=== PATIENT | female | born 1955 | race Caucasian/White ===

== ENCOUNTER 2018-09-02 00:39 | Emergency (ER) | payer MEDICARE ==
[2018-09-02] MEDS ORDERED: Bacitracin Oint 1 GM U/D Packet TOP ONE (01:11)
--- NOTE | 2018-09-02 01:15 | EDM.PDOC ---
ED HPI GENERAL MEDICAL PROBLEM - General Chief Complaint: Upper Extremity Injury/Pain Stated Complaint: FELL, HURT LEFT SIDE OF FACE AND RIGHT WRIST Time Seen by Provider: 09/02/18 01:11 Source of Information: Reports: Patient History Limitations: Reports: No Limitations - History of Present Illness INITIAL COMMENTS - FREE TEXT/NARRATIVE: pt was going down the stairs of the deck and she lost her balnce. She injured her rt wrist and she now has swelling. She has a abrasion on the rt knee but she has good range of motion. She has marked bruising of the left forehead and around the left orbit. Her vision is good. Onset: Today, Other (pt fell this pm) Duration: Hour(s): Location: Reports: Head, Upper Extremity, Right Associated Symptoms: Reports: No Other Symptoms Right Wrist Pain Score (Numeric/FACES): 8 - Related Data Allergies Allergy/AdvReac Type Severity Reaction Status Date / Time No Known Allergies Allergy Verified 09/02/18 01:04 Home Meds: Home Meds Levothyroxine Sodium [Synthroid] 100 mcg PO DAILY 09/02/18 [History] Lisinopril 5 mg PO DAILY 09/02/18 [History] hydroCHLOROthiazide [Hydrochlorothiazide] 12.5 mg PO DAILY 09/02/18 [History] Social & Family History - Tobacco Use Smoking Status *Q: Never Smoker - Caffeine Use Caffeine Use: Reports: Coffee - Alcohol Use Days Per Week of Alcohol Use: 3 Number of Drinks Per Day: 1 Total Drinks Per Week: 3 - Recreational Drug Use Recreational Drug Use: No Review of Systems - Review of Systems Review Of Systems: See Below Constitutional: Reports: No Symptoms Eyes: Reports: No Symptoms, Other (pt has swelling around the orbit and on the left forehad area. ) Ears: Reports: No Symptoms Nose: Reports: No Symptoms Mouth/Throat: Reports: No Symptoms Respiratory: Reports: No Symptoms Cardiovascular: Reports: No Symptoms GI/Abdominal: Reports: No Symptoms ED EXAM, GENERAL - Physical Exam Exam: See Below Free Text/Narrative:: pt arrived after falling on the steps of the deck. Exam Limited By: No Limitations General Appearance: Alert, Severe Distress, Other (pt was not knocked out. She is alert and answering questions appropiately. Pupils are equal and reactive. She has alot of sig bruising on the left fiorehead with hematoma formation) Ears: Normal TMs Nose: Normal Inspection Throat/Mouth: Normal Inspection Head: Atraumatic Neck: Normal Inspection Respiratory/Chest: No Respiratory Distress Cardiovascular: Regular Rate, Rhythm GI/Abdominal: Soft, Non-Tender (Female) Exam: Deferred Rectal (Female) Exam: Deferred Back Exam: Normal Inspection Extremities: Other ( rt wrist is very tender and swollen. She has a abrasion on the rt knee but she has good motion on the knee. ) Neurological: Alert, Oriented, Normal Cognition Psychiatric: Normal Affect Course - Vital Signs Last Recorded V/S: Last Vital Signs Temp 36.3 C 09/02/18 01:16 Pulse 82 09/02/18 01:16 Resp 20 09/02/18 01:16 BP 145/87 H 09/02/18 01:16 Pulse Ox 95 09/02/18 01:16 - Orders/Labs/Meds Meds: Medications Discontinued Medications Generic Name Dose Route Start Last Admin Trade Name Freq PRN Reason Stop Dose Admin Bacitracin 1 dose 09/02/18 01:11 09/02/18 01:42 Bacitracin Oint 1 Gm TOP 09/02/18 01:12 1 dose ONETIME ONE Administration - Re-Assessments/Exams Free Text/Narrative Re-Assessment/Exam: 09/02/18 02:05 xray of the rt wrist did not reveal any fractures. A cock up splint was applied to wear for the next few days. Her facial cat scan is neg for fractures. She was warned that she had a good sized hematoma on the left forehead and this would cause bruising of the faciasl area. Departure - Departure Time of Disposition: 02:07 Disposition: Home, Self-Care 01 Condition: Fair Clinical Impression: Contusion of face, Sprain of wrist, right - Discharge Information Referrals: PCP,None [Primary Care Provider] - Forms: ED Department Discharge Care Plan Goals: cool pack to the wrist and left forehead, elevate the wrist. Use the splint for comfortfor the next 4-5 days. motrin 600mg tid as needed for pain, norco 5/325 q6h prn fo more severe pain # 8
--- NOTE | 2018-09-02 01:50 | CRLCR ---
INDICATION: Fall. COMPARISON: None. FINDINGS/IMPRESSION: Right wrist, 3 views. No fracture, dislocation, or other acute abnormality identified in the right wrist. Scattered mild degenerative changes are noted, greatest at the 1st CMC joint. Dictated by Reggie Don MD @ 09/02/2018 1:48:20 AM Dictated by: Reggie Don MD @ 09/02/2018 01:48:45 (Electronically Signed)
--- NOTE | 2018-09-02 01:54 | CRLCT ---
INDICATION: marked bruising of the left forehead and orbit CT FACE WITHOUT CONTRAST TECHNIQUE: Multidetector axial CT imaging was performed through the face without contrast. Coronal and sagittal reconstructions were generated. FINDINGS: Scalp hematoma is seen over the left frontal region, superior and lateral to the left orbit, incompletely imaged. No acute fractures are identified. The orbits and their contents are within normal limits. The paranasal sinuses show mild mucosal thickening in the left frontal sinus and in the inferior maxillary sinuses bilaterally, likely inflammatory in etiology. No sinus fluid levels are demonstrated. The mandible and temporomandibular joints are intact. Mastoid air cells are clear. IMPRESSION: Left frontal scalp hematoma. No facial fracture identified. OPAL WILSON MD [facility] Dictated by Reggie Wilson MD @ 09/02/2018 1:53:33 AM Dictated by: Reggie Wilson MD @ 09/02/2018 01:54:05 (Electronically Signed)
== END 2018-09-02 02:18 | disposition home or self-care (01) ==
LOC: JP.ED 00:39
DX: S63.501A Unspecified sprain of right wrist, initial encounter (principal); S00.83XA Contusion of other part of head, initial encounter; Z79.899 Other long term (current) drug therapy; W10.9XXA Fall (on) (from) unspecified stairs and steps, initial encounter
CPT/HCPCS: 70486; 73110-RT; 99283-25